=== PATIENT | female | born 1980 | race Two or more races ===

== ENCOUNTER 2019-05-21 22:45 | Emergency (ER) | payer SELFPAY ==
[~2019-05-21] VITALS: Ht 165.1 cm; Wt 81.6 kg
[~2019-05-21 22:45] MED LIST: PNV1TABL25 PO
[2019-05-21 22:55] VITALS: BP 123/65
--- NOTE | 2019-05-21 23:52 | PHYS DOC ---
Past Medical History Alcohol Use: None (LV ORR APRN) Attending Signature I have participated in the care of this patient and I have reviewed and agree with all pertinent clinical information above including history, exam, and recommendations. (OPAL BAZAN MD) Adult General Chief Complaint Chief Complaint: FLU SYMPTOM HPI HPI Patient is a 39 year old female who presents to the ED today complaining of subjective fevers, body aches, chills, nasal congestion, symptoms began 4 days ago. (VL ORR APRN) Review of Systems Review of Systems Constitutional: Reports subjective fevers, body aches and chills Eyes: Denies change in visual acuity, redness, or eye pain [] HENT: Reports nasal congestion, denies sore throat [] Respiratory: Reports cough, denies shortness of breath [] Cardiovascular: No additional information not addressed in HPI [] GI: Denies abdominal pain, nausea, vomiting, bloody stools or diarrhea [] : Denies dysuria or hematuria [] Musculoskeletal: Denies back pain or joint pain [] Integument: Denies rash or skin lesions [] Neurologic: Denies headache, focal weakness or sensory changes [] All other systems were reviewed and found to be within normal limits, except as documented in this note. (LV ORR APRN) Allergies Allergies Allergies Coded Allergies Type Severity Reaction Last Updated Verified No Known Drug Allergies 08/13/15 No (OPAL BAZAN MD) Physical Exam Physical Exam Constitutional: Well developed, well nourished, no acute distress, non-toxic appearance. [] HENT: Normocephalic, atraumatic, bilateral external ears normal, oropharynx moist, no oral exudates, nose normal. [] Eyes: PERRLA, EOMI, conjunctiva normal, no discharge. [] Neck: Normal range of motion, no tenderness, supple, no stridor. [] Cardiovascular:Heart rate regular rhythm, no murmur [] Lungs & Thorax: Bilateral breath sounds clear to auscultation [] Abdomen: Bowel sounds normal, soft, no tenderness, no masses, no pulsatile masses. [] Skin: Warm, dry, no erythema, no rash. [] Back: No tenderness, no CVA tenderness. [] Extremities: No tenderness, no cyanosis, no clubbing, ROM intact, no edema. [] Neurologic: Alert and oriented X 3, normal motor function, normal sensory function, no focal deficits noted. [] Psychologic: Affect normal, judgement normal, mood normal. [] (LV ORR APRN) Current Patient Data Vital Signs Vital Signs Date Time Temp Pulse Resp B/P (MAP) Pulse Ox O2 Delivery O2 Flow Rate FiO2 05/21/19 22:55 99.4 103 14 123/65 (84) 96 Room Air 99.4 (OPAL BAZAN MD) EKG EKG [] (LV ORR APRN) Radiology/Procedures Radiology/Procedures [] (LV ORR APRN) Course & Med Decision Making Course & Med Decision Making Pertinent Labs and Imaging studies reviewed. (See chart for details) This is a 39-year-old female patient presenting to the ED today with body aches fever or chills and a cough that began 4 days ago. Patient met MSE protocal She left. (LV ORR APRN) Dragon Disclaimer Dragon Disclaimer This electronic medical record was generated, in whole or in part, using a voice recognition dictation system. (LV ORR APRN) Departure Departure Impression: Primary Impression: Fever Additional Impression: Cough Disposition: 07 AGAINST MEDICAL ADVICE Condition: STABLE Referrals: NO PCP (PCP) Problem Qualifiers Primary Impression: Fever Fever type: unspecified Qualified Codes: R50.9 - Fever, unspecified LV ORR APRN May 21, 2019 23:52 OPAL BAZAN MD May 22, 2019 18:18
== END 2019-05-21 23:38 | disposition left against medical advice (07) ==
LOC: ER 22:45
DX: R50.9 Fever, unspecified (principal); R09.81 Nasal congestion; R05 Cough
CPT/HCPCS: 99281